=== PATIENT | female | born 1990 | race Caucasian/White ===

== ENCOUNTER 2025-02-08 12:12 | Emergency (ER) | payer OTHER ==
[~2025-02-08] VITALS: Ht 162.6 cm; Wt 52.3 kg
[2025-02-08 12:19] VITALS: BP 130/90; PULSE 84; RESP 16; TEMP 98.6; O2SAT 99
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
== END 2025-02-08 13:19 | disposition home or self-care (01) ==
LOC: ER 12:13
DX: Z04.1 Encounter for examination and observation following transport accident (principal); V87.7XXA Person injured in collision between other specified motor vehicles (traffic), initial encounter; Y93.89 Activity, other specified; Y92.410 Unspecified street and highway as the place of occurrence of the external cause; Y99.8 Other external cause status
CPT/HCPCS: 99283